=== PATIENT | female | born 1950 | race Caucasian/White ===

== ENCOUNTER 2022-07-20 09:33 | Day surgery (SDC) | payer MEDICAID ==
[~2022-07-20] VITALS: Ht 149.9 cm; Wt 45.4 kg
[~2022-07-20 09:33] MED LIST: ISOVUE-300 (IOPAMIDOL) 100 ML INFUS..BTL IV ONE; LIDOCAINE 2%, 20 ML MDV ONE; NORMAL SALINE 10 ML VIAL ONE; methylPREDNISolone ACETATE 40 MG/ML ONE
[2022-07-20] MEDS ORDERED: MIDAZOLAM HCL 5 MG/5 ML VIAL ONE (12:36)
[2022-07-20] MEDS ORDERED: DIPHENHYDRAMINE INJ 50 MG/ML VIAL ONE (12:36)
[2022-07-20] MEDS ORDERED: fentaNYL CITRATE/PF 100 MCG/2 ML AMP ONE (12:36)
[2022-07-20 18:09] VITALS: BP_SYST 130
== END 2022-07-20 14:13 | disposition home or self-care (01) ==
LOC: SDS 09:33 → SMU 09:40 → SDS 14:13
PROVIDERS: ATTEND Internal Medicine
DX: M51.16 Intervertebral disc disorders with radiculopathy, lumbar region (principal); M47.816 Spondylosis without myelopathy or radiculopathy, lumbar region; M47.812 Spondylosis without myelopathy or radiculopathy, cervical region; I10 Essential (primary) hypertension; F32.A Depression, unspecified; E03.9 Hypothyroidism, unspecified; Z79.899 Other long term (current) drug therapy; Z20.822 Contact with and (suspected) exposure to COVID-19
CPT/HCPCS: 36415 ×2; 62323; 87426; U0003; J1200; J2001; J1030; J2250; J3010; Q9967; 76000

== ENCOUNTER 2022-11-16 09:02 | Day surgery (SDC) | payer MEDICAID ==
[~2022-11-16] VITALS: Ht 149.9 cm; Wt 42.6 kg
[2022-11-16] MEDS ORDERED: MIDAZOLAM HCL 5 MG/5 ML VIAL ONE (12:09)
[2022-11-16] MEDS ORDERED: DIPHENHYDRAMINE INJ 50 MG/ML VIAL ONE (12:10)
[2022-11-16] MEDS ORDERED: fentaNYL CITRATE/PF 100 MCG/2 ML AMP ONE (12:10)
[2022-11-16 17:09] VITALS: BP_SYST 108
== END 2022-11-16 14:30 | disposition home or self-care (01) ==
LOC: SDS 09:02 → SMU 09:03 → SDS 14:30
PROVIDERS: ATTEND Internal Medicine
DX: M51.16 Intervertebral disc disorders with radiculopathy, lumbar region (principal); M47.816 Spondylosis without myelopathy or radiculopathy, lumbar region; M47.812 Spondylosis without myelopathy or radiculopathy, cervical region; I10 Essential (primary) hypertension; E03.9 Hypothyroidism, unspecified; F32.A Depression, unspecified; M25.562 Pain in left knee; Z79.899 Other long term (current) drug therapy
CPT/HCPCS: 62323; J1200; J2001; J1030; J2250; J3010; Q9967; 76000